=== PATIENT | male | born 1995 | race Caucasian/White ===

== ENCOUNTER 2019-08-24 15:06 | Emergency (ER) | payer BC ==
[2019-08-24 15:22] VITALS: BP 131/82
--- NOTE | 2019-08-24 15:30 | UC ---
General HPI - HPI Summary HPI Summary: Pleasant 23 yo gentleman c/o cough x approx 1 month. Here today d/t tired of coughing. sometimes productive, but minimally. Cough on and off. no fever / chills / st no gi / gu issues No ear pain no known personal or family hx asthma - History of Current Complaint Chief Complaint: UCGeneralIllness Stated Complaint: COUGH Time Seen by Provider: 08/24/19 15:28 Hx Obtained From: Patient Pain Intensity: 0 - Allergy/Home Medications Allergies/Adverse Reactions: Allergies Allergy/AdvReac Type Severity Reaction Status Date / Time No Known Allergies Allergy Verified 08/24/19 15:19 Home Medications: Home Medications Albuterol HFA INHALER* [Ventolin HFA Inhaler*] 1 - 2 puff INH Q4H PRN #1 mdi [Rx] Azithromycin TAB* [Zithromax TAB (Z-COURT) 250 mg #6 tabs] 500 mg PO DAILY #5 tab 08/24/19 [Rx] Benzonatate CAP* [Tessalon 100 MG CAP*] 100 mg PO TID PRN #30 cap 08/24/19 [Rx] Ibuprofen TAB* [Advil TAB*] 2 tab PO ONCE 08/24/19 [History Confirmed 08/24/19] predniSONE 10 mg TAB [Deltasone 10 MG TAB*] 10 mg PO DAILY #20 tab 08/24/19 [Rx] PMH/Surg Hx/FS Hx/Imm Hx Previously Healthy: Yes - Surgical History Surgical History: None - Family History Known Family History: Positive: Other - denies hx asthma - Social History Alcohol Use: Occasionally Substance Use Type: None Smoking Status (MU): Never Smoked Tobacco Review of Systems All Other Systems Reviewed And Are Negative: Yes Constitutional: Positive: Negative Skin: Positive: Negative Eyes: Positive: Negative ENT: Positive: Negative Respiratory: Positive: Cough Cardiovascular: Positive: Negative Gastrointestinal: Positive: Negative Genitourinary: Positive: Negative Motor: Positive: Negative Neurovascular: Positive: Negative Musculoskeletal: Positive: Negative Neurological/Mental Status: Positive: Negative Psychological: Positive: Negative Is Patient Immunocompromised?: No Physical Exam Triage Information Reviewed: Yes Appearance: Well-Appearing, Well-Nourished Vital Signs: Initial Vital Signs Temp 97.6 F 08/24/19 15:20 Pulse 65 08/24/19 15:20 Resp 14 08/24/19 15:20 BP 131/82 08/24/19 15:20 Pulse Ox 100 08/24/19 15:20 Vital Signs Reviewed: Yes Eye Exam: Normal ENT: Positive: Pharyngeal erythema - mild post pharyngeal redness c/w cough, uvula midline no sores / exudates, TM dull - Tm's dull maddox bilat, not red, eac 's ok Neck exam: Normal Neck: Positive: Supple, Nontender, No Lymphadenopathy Respiratory Exam: Other - + scattered bilat all lobes faint expiratory wheeze no rtx, no distress Respiratory: Positive: No respiratory distress, No accessory muscle use Cardiovascular Exam: Normal Cardiovascular: Positive: RRR, Pulses Normal, Brisk Capillary Refill Abdominal Exam: Normal Abdomen Description: Positive: Nontender Musculoskeletal Exam: Normal - moves x 4 ext's, gait steady Neurological Exam: Normal - grossly nonfocal Psychological Exam: Normal - nad Skin Exam: Normal - nondiaphoretic no visible or reported rash Course/Dx - Course Course Of Treatment: CXR obtained d/t no known hx wheezing Reviewed cxr and report with pt. ? pneumonia. Will tx for atypical community acquired. reviewed coa / tx plan encouraged recheck pcp in about 2 weeks, he will be going home in 2 weeks for spring advised so seek medical attn for worse or new problems I offered to call his parents to keep in the loop, but he declines questions as posed answered to the best of my ability. School / sports note offered, but pt declines. - Diagnoses Provider Diagnosis: Wheezing, Community acquired pneumonia Discharge ED - Sign-Out/Discharge Documenting (check all that apply): Patient Departure All imaging exams completed and their final reports reviewed: Yes - Discharge Plan Condition: Stable Disposition: HOME Prescriptions: Albuterol HFA INHALER* [Ventolin HFA Inhaler*] 1 - 2 puff INH Q4H PRN #1 mdi PRN Reason: Wheezing Azithromycin TAB* [Zithromax TAB (Z-COURT) 250 mg #6 tabs] 500 mg PO DAILY #5 tab Benzonatate CAP* [Tessalon 100 MG CAP*] 100 mg PO TID PRN #30 cap PRN Reason: Cough predniSONE 10 mg TAB [Deltasone 10 MG TAB*] 10 mg PO DAILY #20 tab Patient Education Materials: Wheezing (ED), Community Acquired Pneumonia (ED) Referrals: No Primary Care Phys,NOPCP [Primary Care Provider] - Additional Instructions: Please follow up with your primary care physician, recommend respiratory recheck in approximately 2 weeks. Please seek medical attention for worse or new problems in the meantime. Especially fever / chills / shortness of breath. Hydrate. Minimize exertion until you are feeling better. - Billing Disposition and Condition Condition: STABLE Disposition: Home
[2019-08-24] MEDS ORDERED: Albuterol HFA INHALER* 8 gm MDI INH ONE (15:48)
== END 2019-08-24 16:54 | disposition home or self-care (01) ==
LOC: UCCORT 15:06
DX: J18.9 Pneumonia, unspecified organism (principal); R06.2 Wheezing
CPT/HCPCS: 71046; 99203; A9270-GY; G0463